=== PATIENT | female | born 1945 | race Caucasian/White ===

== ENCOUNTER → 2017-11-03 | Outpatient (CLI) | payer OTHER ==
[~2017-11-03] MED LIST: LORTAB 7.5/5001 TA3 PO; SYNTHROID100 MCG PO; ZOFRAN4 MG PO
== END ==
LOC: M.RAD 12:04
DX: M19.042 Primary osteoarthritis, left hand (principal)

== ENCOUNTER → 2017-11-07 | Outpatient (CLI) | payer OTHER | LOC: M.RAD 15:33 | DX: N91.2 Amenorrhea, unspecified (principal); Z78.0 Asymptomatic menopausal state ==

== ENCOUNTER 2019-03-24 08:54 | Inpatient (IN) | payer OTHER ==
[~2019-03-24] VITALS: Ht 157.5 cm; Wt 63.5 kg
[~2019-03-24 08:54] MED LIST changes: +SYNTHROID100 MC1 PO; -SYNTHROID100 MCG PO
[2019-03-24 08:55] VITALS: BP 148/61
[2019-03-24 09:41] LABS: ABSOLUTE BASOPHILS 0.1 thou/uL (0.0-0.2); ABSOLUTE EOSINOPHILS 0.2 thou/uL (0.0-0.7); ABSOLUTE LYMPHOCYTES 1.6 thou/uL (0.8-5.3); ABSOLUTE MONOCYTES 0.6 thou/uL (0.0-1.2); ABSOLUTE NEUTROPHILS 5.7 thou/uL (1.6-8.1); BASOPHILS 1.4 %; EOSINOPHILS 2.8 %; HEMATOCRIT 40.9 % (37.0-47.0); HEMOGLOBIN 14.1 gm/dL (12.0-15.0); LYMPHOCYTES 19.2 %; MCHC 34.4 g/dL (28.0-37.0); MCV 87.3 fL (80.0-100.0); MPV 7.1 fl. (7.2-11.1); NUCLEATED RBCS 0 /100WBC; PLATELET COUNT* 354 thou/uL (150-400); POLYS 69.6 %; RBC 4.69 mil/uL (4.20-5.00); RDW-CV 13.2 % (10.5-14.5); WBC 8.2 thou/uL (4.0-11.0)
[2019-03-24 09:50] LABS: ANION GAP 9 mmol/L (7-16); BUN 7 mg/dL (7-18); CALCIUM 9.1 mg/dL (8.5-10.1); CHLORIDE 95 mmol/L (98-107); CO2 26 mmol/L (21-32); CREATININE 0.9 mg/dL (0.6-1.3); GLUCOSE 120 mg/dL (70-99); POTASSIUM 3.8 mmol/L (3.5-5.1); PROTIME 9.9 Seconds (9.20-11.50); SODIUM 130 mmol/L (136-145)
[2019-03-24 10:03] LABS: ALBUMIN 3.6 g/dL (3.4-5.0); ALKALINE PHOSPHATASE 108 U/L (46-116); SGOT 16 U/L (15-37); SGPT 22 U/L (30-65); TOTAL BILIRUBIN 0.3 mg/dL (<0.1-1.0); TROPONIN-I LEVEL <0.06 ng/mL (<0.06)
[2019-03-24 11:12] VITALS: BP 138/76
[2019-03-24 16:20] VITALS: BP 136/63
--- NOTE | 2019-03-24 19:58 | NUR ---
REC PT FROM ER, VSS, NSR ON TELE, PT REPORTED NO PAIN OR TINGLING IN LEFT EXTREMITIES. PT STAND BY ASSIST. POSSESSION AND CALL LIGHT WITHIN REACH. FAMILY SPENT DAY WITH PATIENT. PT RESTING IN ROOM. HOURLY ROUNDING PERFORMED
[2019-03-24 20:00] VITALS: BP 118/73
[2019-03-24] MEDS ORDERED: TOPROL XL100 MG PO (20:05)
[2019-03-24] MEDS ORDERED: NORVASC10 MG PO (20:07)
[2019-03-24] MEDS ORDERED: SEMPREX D (20:09)
[2019-03-24] MEDS ORDERED: NEXIUM40 MG PO (20:09)
[2019-03-24] MEDS ORDERED: WELCHOL 625 MG625 MG PO (20:10)
[2019-03-24] MEDS ORDERED: ASPIR 8181 MG PO (20:11)
[2019-03-25] VITALS: BP 145/64
[2019-03-25 02:05] LABS: GLYCOHEMOGLOBIN (HGB A1C) 5.8 % (4.8-5.6)
[2019-03-25 04:00] VITALS: BP 119/63
--- NOTE | 2019-03-25 04:49 | NUR ---
A&O X4, MAINTAINING O2 SATS >92% ON RA. NIH 0 THIS SHIFT. DAUGHTER AT BEDSIDE. NO LONGER REPORTED ANY LEFT SIDED WEAKNESS. VSS, NO C/O PAIN OR DISCOMFORT NOTED, PT RESTING WELL IN BED WITH CALL LIGHT WITHIN REACH.
[2019-03-25 05:32] LABS: CHOLESTEROL 196 mg/dL (<200); HDL CHOLESTEROL 90 mg/dL (>40); LDL CHOLESTEROL 86 mg/dL (<100); TC:HDL 2.2 Ratio (Not establshd); TRIGLYCERIDE 104 mg/dL (<150); VLDL 21 mg/dL (<40)
[2019-03-25 05:33] LABS: SERUM ASSESSMENT Clear
[2019-03-25 08:00] VITALS: BP 132/65
[2019-03-25 10:41] VITALS: BP 132/65
--- NOTE | 2019-03-25 11:14 | EKG ---
[place] [address] ELECTROCARDIOGRAM REPORT Name: TIBURCIO PAINTER I Room: [address] ADM IN .R.#: [id number] Admission: 03/24/19 Attend Phys: Quinton Hernandez MD Discharge: Date of : 45 Report #: [id number] THIS REPORT FOR: //name// [facility] ED Test Date: 2019-03-24 Test Time: 09:09:52 Pat Name: TIBURCIO PAINTER Department: Room: [facility] Gender: F Ink Printer: KF : [id number] Requested By: Cedric Tinoco Order Number: [id number] MD: Sam Malave Measurements Intervals [place] Rate: 73 P: 47 NH: 189 QRS: 51 QRSD: 95 T: 42 QT: 404 QTc: 446 Interpretive Statements Sinus rhythm septal infarct, age indeterminate Compared to ECG 02/23/2010 10:20:30 Myocardial infarct finding now present Electronically Signed On 03-25-2019 11:14:08 CDT by Sam Malave [email or web address] <ELECTRONICALLY SIGNED> By: Sam Malave MD, [facility] 03/25/19 1114 [id number] Sam Malave MD, [facility] /EPI
[2019-03-25 12:00] VITALS: BP 112/67
--- NOTE | 2019-03-25 15:49 | 2DMMODE ---
[place] [address] 2 D/M-MODE ECHOCARDIOGRAM Name: IRASEMAVIBHATIBURCIO I Room: [address] IN [facility]#: [id number] Admission: 03/24/19 Attend Phys: Quinton Hernandez, Discharge: Date of : 45 Date of Service: 03/25/19 1548 Report #: [id number] THIS REPORT FOR: //name// APPROVED REPORT Study performed: 03/25/2019 13:36:58 EXAM: Comprehensive 2D, Doppler, and color-flow Echocardiogram Patient Location: In-Patient Room #: 200 Status: routine BSA: 1.65 HR: 75 bpm BP: 119/63 mmHg Rhythm: NSR Other Information Study Quality: Good Indications CVA/TIA Echo Enhancing Agent Indication: Rule out Shunt Agent(s) / Amount(s) Used: Agitated Saline 10 cc 2D Dimensions IVSd: 9.50 (7-11mm) LVOT Diam: 20.60 (18-24mm) LVDd: 44.38 mm PWd: 8.43 (7-11mm) Ascending Ao: 29.78 (22-36mm) LVDs: 22.24 (25-40mm) Aortic Root: 27.56 mm Volumes Left Atrial Volume (Systole) LA ESV Index: 24.90 mL/m2 Aortic Valve AoV Peak Bora.: 1.36 m/s AO Peak Gr.: 7.43 mmHg LVOT Max P.93 mmHg AO Mean Gr.: 4.01 mmHg LVOT Mean P.82 mmHg LVOT Max V: 1.22 m/s AO V2 VTI: 27.24 cm LVOT Mean V: 0.76 m/s ONOFRE (VTI): 3.10 cm2 LVOT V1 VTI: 25.33 [place] [address] 2 D/M-MODE ECHOCARDIOGRAM Name: TIBURCIO PAINTER I Room: [address] IN [facility]#: [id number] Admission: 03/24/19 Attend Phys: Quinton Hernandez, Discharge: Date of : 45 Date of Service: 03/25/19 1548 Report #: [id number] Mitral Valve E/A Ratio: 1.02 MV Decel. Time: 203.05 ms MV E Max Bora.: 0.78 m/s MV PHT: 58.88 ms MVA (PHT): 3.74 cm2 TDI E/Lateral E': 9.75 E/Medial E': 9.75 Medial E' Bora.: 0.08 m/s Lateral E' Bora.: 0.08 m/s Pulmonary Valve PV Peak Bora.: 1.09 m/s PV Peak Gr.: 4.73 mmHg Left Ventricle The left ventricle is normal size. There is normal LV segmental wall motion. There is normal left ventricular wall thickness. Left ventricular systolic function is normal. The left ventricular ejection fraction is within the normal range. LVEF is 60-65%. The left ventricular diastolic function is normal. Right Ventricle The right ventricle is normal size. The right ventricular systolic function is normal. Atria The left atrium size is normal. Interatrial septum is intact without evidence of ASD or PFO. The right atrium size is normal. Aortic Valve The aortic valve is normal in structure. No aortic regurgitation is present. There is no aortic valvular stenosis. Mitral Valve The mitral valve is normal in structure. Trace mitral regurgitation. No evidence of mitral valve stenosis. Tricuspid Valve The tricuspid valve is normal in structure. Trace tricuspid regurgitation. Pulmonic Valve The pulmonary valve is normal in structure. There is no pulmonic [place] [address] 2 D/M-MODE ECHOCARDIOGRAM Name: TIBURCIO PAINTER I Room: [address] IN [facility]#: [id number] Admission: 03/24/19 Attend Phys: Quinton Hernandez, Discharge: Date of : 45 Date of Service: 03/25/19 1548 Report #: [id number] Great Vessels The aortic root is normal in size. IVC is normal in size and collapses >50% with inspiration. Pericardium There is no pericardial effusion. <Conclusion> LVEF is 60-65%. Interatrial septum is intact without evidence of ASD or PFO. <ELECTRONICALLY SIGNED> By: Sam Malave MD, [facility] 03/25/19 1548 1548 1548 Sam Malave MD, FACC /INF
[2019-03-25 16:00] VITALS: BP 137/59
[2019-03-25] MEDS ORDERED: LIPITOR40 MG PO (16:55)
[2019-03-25] MEDS ORDERED: PLAVIX 75 MG TA75 MG PO (16:55)
--- NOTE | 2019-03-25 20:19 | NUR ---
PT VSS, NSR ON TELE (1ST DEG AV BLOCK NOTED), PT HIGH FALL RISK, HOURLY ROUNDING PERFORMED, POSSESSIONS AND CALL LIGHT WITHIN REACH. REC DISCHARGE ORDERS. DISCHARGE INSTRUCTIONS AND EDUCATION PERFORMED AND PT QUESTIONS ANSWERED. CARE NOTES GIVEN FOR NEW MEDICATION. SCRIPTS CALLED IN TO PHARMACY. IV REMOVED WITHOUT COMPLICATION. PT TAKEN TO LOBBY IN WHEELCHAIR BY NURSING STAFF. PT PICKED UP IN CAR BY DAUGHTER.
--- NOTE | 2019-03-25 20:28 | NUR ---
THIS RN HAS REVIEWED AND AGREES WITH THE ASSESSMENT AND CHARTING OF MARC POLLARD.
== END 2019-03-25 17:55 | disposition home or self-care (01) | DRG 65 ==
LOC: M.ERS 08:54 → M.TBA-ER 10:20 → M.2W 10:20
PROVIDERS: Emergency Medicine Emergency Medical Services; ADMIT Internal Medicine
PROC: 3E0234Z Introduction of Serum, Toxoid and Vaccine into Muscle, Percutaneous Approach (ICD-10-PCS; principal; 2019-03-25)
DX: I63.9 Cerebral infarction, unspecified (principal); E22.2 Syndrome of inappropriate secretion of antidiuretic hormone; I10 Essential (primary) hypertension; K21.9 Gastro-esophageal reflux disease without esophagitis; Z60.2 Problems related to living alone; E03.9 Hypothyroidism, unspecified; Z90.710 Acquired absence of both cervix and uterus; Z90.49 Acquired absence of other specified parts of digestive tract; Z98.42 Cataract extraction status, left eye; Z98.41 Cataract extraction status, right eye; Z79.899 Other long term (current) drug therapy; Z88.8 Allergy status to other drugs, medicaments and biological substances; Z23 Encounter for immunization

== ENCOUNTER → 2021-03-18 | Outpatient (CLI) | payer OTHER ==
[~2021-03-18] MED LIST changes: +ASPIR 8181 MG PO; +LIPITOR40 MG PO; +NEXIUM40 MG PO; +NORVASC10 MG PO; +PLAVIX 75 MG TA75 MG PO; +SEMPREX D; +TOPROL XL100 MG PO; +WELCHOL 625 MG625 MG PO
== END ==
LOC: M.CT 12:52
PROVIDERS: ATTEND Family Medicine
DX: I77.811 Abdominal aortic ectasia (principal); K44.9 Diaphragmatic hernia without obstruction or gangrene; I25.10 Atherosclerotic heart disease of native coronary artery without angina pectoris; I70.0 Atherosclerosis of aorta; M48.56XA Collapsed vertebra, not elsewhere classified, lumbar region, initial encounter for fracture; R31.9 Hematuria, unspecified; Z90.49 Acquired absence of other specified parts of digestive tract; Z90.710 Acquired absence of both cervix and uterus; Z90.722 Acquired absence of ovaries, bilateral